=== PATIENT | female | born 1990 | race Caucasian/White ===

== ENCOUNTER 2019-08-30 08:32 | Inpatient (IN) | payer BC ==
[~2019-08-30] VITALS: Ht 162.6 cm; Wt 89.4 kg
[~2019-08-30 08:32] MED LIST: MOTRIN 800800 MG/TAB PO; PERCOCET 325 MG1 TA2 PO; PRENATAL1 TA1 PO
[2019-08-31] VITALS (24 sets, daily range): BP systolic 111–161; BP diastolic 57–83; PULSE 75–94; TEMP 97.6–98.4
[2019-08-31] MEDS ORDERED: TAMIFLU30 MG PO (07:53)
--- NOTE | 2019-08-31 08:32 | NUR ---
Pt and spouse arrive amulatory at 0655 for induction. Pt changed into gown, EFM explained and placed. Pt denies leaking of fluid, vaginal bleeding, contractions, and reports good movement. Assessment complete, vitals taken, consents signed, IV with LR started in left wrist. Plan of care discussed and questions invited and answered.
[2019-08-31 08:39] LABS: BASO % 0.2 % (0.0-2.0); EOS # 0.1 (0.0-0.7); EOS % 1.1 % (0-4.0); GRAN # 7.5 (1.4-6.5); GRAN % 76.3 % (42.2-75.2); HEMATOCRIT 37.4 % (37.0-47.0); HEMOGLOBIN 12.9 g/dl (12.5-16.0); LYMPH # 1.7 (1.2-3.4); MEAN CELL VOLUME 89 fl (80.0-100.0); MEAN CORPUSCULAR HEMOGLOBIN 31 pg (27.0-31.0); MEAN CORPUSCULAR HGB CONC 35 g/dl (33.0-37.0); MONO # 0.5 (0.1-0.6); PLATELET COUNT 219 K/mm3 (130-400); RED BLOOD COUNT 4.22 M/mm3 (4.10-5.30); REDCELL DISTRIBUTION WIDTH-CV 14.6 % (11.5-14.5)
--- NOTE | 2019-08-31 09:21 | NUR ---
Dr. Salgado to pt bedside at 09, discussed AROM and plan of induction. SVE per provider /-. AROM at 09, moderate amount of clear fluid. Bed pad replaced, towel provided. Pt repositioned for comfort.
--- NOTE | 2019-08-31 13:19 | NUR ---
1215 - Pt reporting increasing rectal pressure with contractions, deep variables noted with contractions. Pt straight cathed. 1219 - SVE with continued deep variables with contractions. Dr. Salgado notified, see physician notification. 1228 - SVE anterior lip. Pt reporting a lot of pressure. Dr. Salgado on unit. 1233 - Dr. Salgado at pt bedside, pushes one contraction with patient. Physician calls pt complete at 1235. Pt prepped and positioned for delivery. Rafa Silveira RN of nursery at pt bedside. 1240 - Viable male infant delivered via by Dr. Salgado. Infant placed on mother's abdomen where dried and stimulated. Care of transferred to Rafa Silveira. Placenta delivered spontaneously at 1243. Second degree repair performed by Dr. Salgado. See physician report. 1250 - Pt bladder drained with red robbin by Dr. Salgado. Pericare provided. Ice pack placed, pt positioned for comfort.
[2019-09-01] MEDS ORDERED: MOTRIN 800800 MG/TAB PO (08:16)
[2019-09-01 08:51] VITALS: BP 113/67; PULSE 97; TEMP 98.8
--- NOTE | 2019-09-01 10:31 | NUR ---
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
--- NOTE | 2019-09-01 14:40 | NUR ---
Discharge instructions given to pt and , verbalizes understanding. Order for repeat bilirubin by Dr Pan faxed to [facility] and this nurse called and talked to scheduling for Dr Grissom.
== END 2019-09-01 15:15 | disposition home or self-care (01) | DRG 807 ==
LOC: LDR 08:32 → OB 08-31 15:11
PROVIDERS: ADMIT Obstetrics & Gynecology
PROC: 10E0XZZ Delivery of Products of Conception, External Approach (ICD-10-PCS; principal; 2019-08-31)
PROC: 0KQM0ZZ Repair Perineum Muscle, Open Approach (ICD-10-PCS; 2019-08-31)
PROC: 10907ZC Drainage of Amniotic Fluid, Therapeutic from Products of Conception, Via Natural or Artificial Opening (ICD-10-PCS; 2019-08-31)
PROC: 3E033VJ Introduction of Other Hormone into Peripheral Vein, Percutaneous Approach (ICD-10-PCS; 2019-08-31)
DX: O99.62 Diseases of the digestive system complicating childbirth (principal); Z37.0 Single live birth; K21.9 Gastro-esophageal reflux disease without esophagitis; O69.1XX0 Labor and delivery complicated by cord around neck, with compression, not applicable or unspecified; O70.1 Second degree perineal laceration during delivery; Z3A.39 39 weeks gestation of pregnancy
CPT/HCPCS: J2590; J7120